=== PATIENT | female | born 1985 | race Caucasian/White ===

== ENCOUNTER 2020-04-04 10:29 | Observation (INO) | payer OTHER ==
--- NOTE | 2020-04-04 11:53 | PDOC.FPRHP ---
- History of Present Illness Chief Complaint: Lower extremity numbness/tingling History of Present Illness: Patient is 35 year old female with a history of HTN, SAMANTHA, GERD and vitamin B1/B6/B9/D deficiency who presents to the ED with complaints of worsening lower extremity numbness/tingling/pain. Symptoms started on 02/25/20 with numbness of feet bilaterally. Patient says the numbness moved up her legs into her chest over the following weeks. She then developed tingling and pain along the same distribution as the numbness. Reports difficulty moving or ambulating due to severe pain. No muscle weakness or falls. No headache, vision changes, unilateral weakness, slurred speech, incontinence and mentation changes. No recent hiking, tick bite, abnormal rash, GI infection, or vaccination. Was seen by PCP, Dr. Sheehan, in clinic on 03/14/20. Started on gabapentin 100mg daily that was titrated to 300mg daily with mild improvement of pain. Work up + for vitamin D, B1 and B6 deficiency. Patient has been taking supplements daily without change in numbness/tingling/pain. Does note "cold sores" on sides of mouth resolved after starting Vitamin B complex daily. Reports poor appetite for months with 30 lb weight loss, unintentional. ED Course: HR 110s-120s. BP 150-160s/110s. Had not taken BP medication this am and took while in ED. - Allergies/Adverse Reactions Allergies Allergy/AdvReac Type Severity Reaction Status Date / Time No Known Allergies Allergy Verified 04/04/20 22:00 - Home Medications Medication Instructions Recorded Confirmed Type Amlodipine [Norvasc] 1 tab PO DAILY 04/05/20 04/05/20 History Cholecalciferol (Vitamin D3) 1 capsule PO DAILY 04/05/20 04/05/20 History [Vitamin D3] Esomeprazole Magnesium [Nexium] 1 cap PO DAILY 04/05/20 04/05/20 History Folic Acid [Folvite] 1 tab PO DAILY 04/05/20 04/05/20 History Gabapentin [Neurontin] 1 cap PO DAILY 04/05/20 04/05/20 History Metoprolol Tartrate [Lopressor] 0.5 tab PO BID 04/05/20 04/05/20 History Norethindrone-E.Estradiol-Iron [Lo 1 - 10 mcg PO DAILY 04/05/20 04/05/20 History Loestrin Fe] Vitamin B Complex/Folic Acid 1 capsule PO DAILY 04/05/20 04/05/20 History [Super B Maxi Complex Caplet] - History PMHx: HTN, SAMANTHA, asthma, GERD, vitamin B1 deficiency, vitamin B6 deficiency, folate deficiency, vitamin D deficiency PSHx: FHx: No history of neurologic disorders. No history of MS. Social: Lives at home with and 7 year old son. Never smoker. ETOH use - previously drank 1 bottle of wine per day, cut back in 10/04 after being told LFTs were elevated, now drinks 2 normal sized tumblers of wine per night, last use yesterday pm. No hx of drug use. - Review of Systems General: reports: weight/appetite/sleep changes (30 lb weight loss). denies: fever/chills, fatigue Eyes: denies: eye pain, vision changes ENT: denies: nasal congestion, rhinorrhea Respiratory: denies: cough, congestion, shortness of breath Cardiovascular: denies: chest pain, palpitation, edema Gastrointestinal: denies: nausea, vomiting, diarrhea, abdominal pain Genitourinary: denies: incontinence Skin: denies: rashes, lesions Musculoskeletal: reports: pain (from feet to torso), swelling (mild feet, bilaterally). denies: tenderness, stiffness Neurological: reports: numbness. denies: syncope, seizure, weakness Psychological: denies: anxiety, depression - Vital signs BP 158/116, HR 115, RR 18, Temp 99.5, O2 100% on RA, 72.57kg - Physical Exam Constitutional: NAD, awake, alert and oriented HEENT: normocephalic and atraumatic, PERRLA, EOMI, conjunctiva clear, MMM Neck: FROM, trachea midline Chest: no-tender to palpation Heart: normal S1/S2, no edema -Heart: Tachycardic Lungs: CTAB, no respiratory distress, good air movement Abdomen: soft, non-tender, bowel sounds present -Abdomen: Abdominal striae present Musculoskeletal: normal tone, ROM grossly normal Neurological: no focal deficit, CN II-XII intact, normal sensation, DTRs 2+ -Neurological: Exam limited by pain. Strength 5/5 in upper and lower extremities. Negative Babinsky Skin: no rash/lesions, no jaundice Heme/Lymphatic: no unusual bruising or bleeding Psychiatric: normal mood and affect FMR H&P: Results - Labs Result Diagrams: 04/05/20 11:11 04/05/20 11:11 FMR H&P: A/P - Plan 35 year old female with hx of multiple vitamin deficiencies presented for progressive numbness/tingling/pain Ascending neuropathy, possibly 2/2 B1 deficiency vs. B6 deficiency vs. neurologic etiology Symptom progression over 6 weeks. Diagnosed with vitamin B1, B6 and D deficiency on 03/14/20, currently on B complex and B6 supplementation. Patient at risk for deficiencies due to chronic ETOH use, possibly has poor absorption as a result. Could be [place] Syndrome, although no risk factors were identified and no paralysis was present on exam. Could also be unusual presentation of MS -Admit to stroke unit, obs -Monitor on telemetry -Repeat vitamin levels. Supplement IV as indicated -CMP, CBC, HIV, RPR, UDS to further investigate -Consider neurology consult if symptoms do not improve with vitamin supplementation Vitamin B1 deficiency Vitamin B6 deficiency Vitamin D deficiency Recently diagnosed in clinic -See above for management Hx of folate deficiency Diagnosed 10/04, WNL on recheck on 03/06 -Continue home supplementation HTN BP elevated in ED, has not taken meds this am -Give home am meds now. Continue upon admission -EKG due to tachycardia Hx of folate deficiency Folate low on 10/04, improved to normal limits after initiating daily supplementation -Folate daily Asthma -Albuterol PRN for wheezing -Flonase PRN SAMANTHA -No home meds. Monitor GERD -No home meds Chronic alcohol use Drinks 2 wine tumblers per night -ASE protocol in place -ETOH level PCP: Sissy Code: FULL Diet: HH DVT: Lovenox 40mg Dispo: Admit to stroke obs, expected LOS < 48 hours FMR H&P: Upper Level - Plan Date/Time: 04/04/20 1153 I, [Shara Parmar], have evaluated this patient and agree with findings/plan as outlined by merchandising intern resident. Pertinent changes/additions are listed here. Aniyah Diaz is a 35 yo F with PMH of HTH and chronic alcohol abuse presented to the ER for worsening pain in feet. Her symptoms started in February and included numbness and tingling with associated pain. It has been difficult for her to walk due to this. Her symptoms have progressively ascended and is now up to her torso. She has been undergoing outpatient workup with her PCP, Dr. Sheehan, who discovered a B1, B6 and Vitamin D and folic acid deficiency upon chart review. She has been taking PO vitamins including B complex, folic acid. Due to clinic being closed and persistence of pain she came to the ER. She denies any bladder/bowel incontinence, pain with eye movement, paralysis, just electric, burning pain in her lower extremities. No recent illnesses or travel. No respiratory issues. She does endorse a 30lb weight loss due to lack of appetite but no GI sxs or abdominal pain. PE: Gen- NAD, CN II-XII grossly intact but limited by pain Lower extremities: Feet b/l with no pain at rest, pain with pressure on soles of feet. Negative Babinski. Reflexes present. Resistance to pressure. Outpatient labs on 03/14/20: Vit B6 15 (low), Vit B1 52 (low), Vit D 6 (low), CRP 1.4 #Peripheral neuropathy: Suspected 2/2 vitamin deficiencies vs. neurologic etiology (consider demyelinating polyneuropathy? MS? [place]?). Known B1, B6, Vit D deficiencies when checked with Dr. Sheehan a few weeks ago and has been on oral replacements. Will recheck these levels. Check RPR, HIV, CRP since CRP elevated in OP setting. Check UDS. Suspect B1 deficiency in light of chronic alcoholism. Unfortunately B1 is a 5 day sendout so will empirically replace with monitoring of symptoms. If unimprovement of symptoms will consider neurology consult for further evaluation. Patient mildly tachycardic will admit for tele monitoring and close monitoring overall in case guillan barre and to monitor for respiratory compromise. Currently no signs of respiratory distress. #Chronic alcohol abuse: Last drink two wine glasses last night. ASE protocol. #HTN: Elevated in room, missed AM meds. Restart home meds. Admit: Stroke/Obs Dvt ppx: Lovenox Addendum - Attending - Attending Attestation Date/Time: 04/04/20 [id number] I personally evaluated the patient and discussed the management with Dr. Parmar. I agree with the History, Examination, Assessment and Plan documented above with any addition or exceptions noted below. The patient is well known to me and has had this ascending paresthesia/neuropathy for a few weeks. Found to be low in B1, B6. She has also had a 30 pound weight loss that was unintentional. Will try to replace b1 via IV. Consult neurology regarding the neuro symptoms. Consider GI consult to scope pt to see if a source can be identified for poor absorption of vitamins as well as the weight loss.
[2020-04-04] MEDS ORDERED: Ondansetron ODT 4 MG TAB PO PRN (11:57)
[2020-04-04] MEDS ORDERED: Fluticasone Propionate Nasal Spray 16 gm Bottle NASAL PRN (12:26)
[2020-04-04] MEDS ORDERED: Albuterol Sulfate 1.25 MG/3 ML NEB NEB PRN (12:26)
[2020-04-04 13:34] LABS: #Eosinphils 0.1 thou/uL (0.0-0.7); #Lymphocytes 0.9 thou/uL (1.20-3.40); #Monocytes 0.6 thou/uL (0.11-0.59); #Neutrophils 3.5 thou/uL (1.40-6.50); %Basophils 0.3 % (0.0-1.0); %Lymphocytes 18.3 % (21.0-51.0); %Monocytes 11.4 % (0.0-10.0); %Neutrophils 68.9 % (42.0-75.0); Hemoglobin 12.8 g/dL (12.0-16.0); Mean Corpuscular HGB CONC 34.1 g/dL (32.0-36.0); Mean Corpuscular Hemoglobin 35.4 pg (27.0-31.0); Mean Platelet Volume 6.6 fL (7.4-10.4); Platelet Count 245 thou/uL (130-400); RBC Distribution Width 12.4 % (11.5-14.5); Red Blood Cell (RBC) Count 3.62 mill/uL (4.20-5.40); White Blood Cell (WBC) Count 5.1 thou/uL (4.8-10.8)
[2020-04-04 14:03] LABS: ALT (SGPT) 24 U/L (8-55); AST (SGOT) 30 U/L (5-34); Albumin 3.7 g/dL (3.5-5.0); Alcohol Less than 10 mg/dL (Less than 10); Alkaline Phosphatase 62 U/L (40-110); Anion Gap 17 mmol/L (10-20); BUN (Urea Nitrogen) 5 mg/dL (7.0-18.7); Bilirubin, Total 0.7 mg/dL (0.2-1.2); Calc. Creatinine Clearance 0 mL/min (70-130); Calcium 8.8 mg/dL (7.8-10.44); Carbon Dioxide 26 mmol/L (22-29); Chloride 98 mmol/L (98-107); Globulin 2.9 g/dL (2.4-3.5); Glucose 87 mg/dL (70-105); Potassium 3.7 mmol/L (3.5-5.1); Protein, Total 6.6 g/dL (6.0-8.3); Sodium 137 mmol/L (136-145)
[2020-04-04 14:16] LABS: Syphilis Antibody Nonreactive (Nonreactive); Syphilis Antibody Index 0.04 S/CO (<1.00 Non-Reactive)
[2020-04-04 14:22] LABS: Vitamin B12 207 pg/mL (211-911)
[2020-04-04 14:26] LABS: HIV (1/2) Antibody/Antigen Non-Reactive (NonReactive); HIV 1/2 INDEX 0.13 S/CO (<1.00)
[2020-04-04] MEDS ORDERED: SODIUM CHLORIDE 0.9% IVPB SCH ×2 (17:00→20:00)
[2020-04-04] MEDS ORDERED: THIAMINE HCL IVPB SCH ×2 (17:00→20:00)
[2020-04-04 18:43] LABS: Amphetamine Not Detected (NotDetected); Barbiturates Screen Not Detected (NotDetected); Benzodiazepine Screen Not Detected (NotDetected); Cocaine Metabolite Screen Not Detected (NotDetected); Medtox Control Line Valid? VALID (VALID); Medtox Reader # READER 4; Methadone Not Detected (NotDetected); Methamphetamine Not Detected (NotDetected); Opiate Screen Not Detected (NotDetected); Oxycodone Screen Not Detected (NotDetected); Phencyclidine (PCP) Not Detected (NotDetected); THC/Cannabinoid Screen Not Detected (NotDetected); Tricyclic Screen Not Detected (NotDetected)
[2020-04-04] MEDS: Gabapentin 300 MG CAP PO SCH (20:41)
[2020-04-04 21:39] VITALS: BMI 27.1
[2020-04-04] MEDS: Metoprolol Tartrate 25 MG TAB PO SCH (22:33)
[2020-04-04] MEDS: Acetaminophen 325 MG TAB PO PRN (22:33)
[2020-04-05] MEDS: Acetaminophen 325 MG TAB PO PRN ×2 (06:14→10:47)
--- NOTE | 2020-04-05 06:44 | PDOC.FM ---
- Subjective Subjective: Reports tingling and pain of lower extremities has improved since receiving the IV thiamine. States pain returns when pressure is placed on heels while standing. Denies headache, chest pain, SOB, palpitations, nausea, abdominal pain, vomiting, diarrhea, melena and hemtochezia. Says poor appetite resolved ~ 1 month ago and has been eating well since. Has not weighed herself to determine if gained weight gain. Clothes fit the same. Denies tremor or hallucinations. - Objective MAR Reviewed: Yes Vital Signs & Weight: Vital Signs (12 hours) Temp Pulse Resp BP Pulse Ox 04/05/20 04:08 99.2 F 102 H 16 143/105 H 99 04/04/20 23:47 99.9 F H 97 16 137/98 H 98 04/04/20 21:24 100.5 F H 117 H 20 159/105 H 100 Weight Weight 69.626 kg I&O: 04/03/20 04/04/20 04/05/20 06:59 06:59 06:59 Intake Total 60 Output Total 600 Balance -540 Result Diagrams: 04/05/20 11:11 04/05/20 11:11 Phys Exam - Physical Examination Constitutional: NAD HEENT: moist MMs, sclera anicteric Neck: full ROM Respiratory: no wheezing, clear to auscultation bilateral Cardiovascular: RRR, no significant murmur Gastrointestinal: soft, non-tender, positive bowel sounds Musculoskeletal: no edema Strength 5/5 Full ROM Neurological: non-focal, normal sensation, moves all 4 limbs Negative babinsky, less tender during exam Psychiatric: normal affect, A&O x 3 Skin: no rash Dx/Plan - Plan Plan: 35 year old female with hx of multiple vitamin deficiencies presented for progressive numbness/tingling/pain Ascending neuropathy, possibly 2/2 B1 deficiency vs. B6 deficiency vs. alcoholic neuropathy vs. neurologic etiology Symptom progression over 6 weeks. Diagnosed with vitamin B1, B6 and D deficiency on 03/14/20, currently on B complex and B6 supplementation. Patient at risk for deficiencies due to chronic ETOH use, possibly has poor absorption as a result. Neg HIV, RPR, UDS. Low B12 level, normal folate. Other vitamin levels pending due to send out status -Admit to stroke unit, obs -Monitor on telemetry -Continue thiamine supplementation -Continue gabapentin 600mg TID -Neurology, Dr. Sung, consulted. F/u recs Vitamin B1 deficiency Vitamin B6 deficiency Vitamin D deficiency Recently diagnosed in clinic -See above for management Hx of folate deficiency Diagnosed 10/04, WNL on recheck on 03/06 -Continue home supplementation Vitamin B12 deficiency -B12 207 upon admission -Start home supplementation Hypomagesium -Mag 1.5. Will replete this am Recent weight loss 30 lb unintentionally weight loss over past few months. Reports due to poor PO intake due to low appetite, now resolved -Consider GI consult HTN -Continue home meds -EKG: NSR, no ST segment changes Asthma -Albuterol PRN for wheezing -Flonase PRN SAMANTHA -No home meds. Monitor GERD -No home meds Chronic alcohol use Drinks 2 wine tumblers per night. Previously 1 bottle per night. -ASE protocol in place: score 5 -> 5. Continue close monitoring for possible withdrawal given elevated temperature, tachycardia, elevated BP -ETOH level negative -Encouraged cessation PCP: Sissy Code: FULL Diet: DVT: Lovenox 40mg Dispo: Home pending further medical management Addendum - Attending - Attending Attestation Date/Time: 04/05/20 1555 I personally evaluated the patient and discussed the management with the team. Plan for fever workup pending covid investigation. I agree with the History, Examination, Assessment and Plan documented above with any addition or exceptions noted below.
[2020-04-05] MEDS: Gabapentin 300 MG CAP PO SCH ×2 (08:18→16:00)
[2020-04-05] MEDS: Metoprolol Tartrate 25 MG TAB PO SCH (08:18)
[2020-04-05] MEDS ORDERED: Magnesium 2 GM/50 ML 2 GM in Premix Bag 1 BAG IVPB SCH (08:45)
[2020-04-05] MEDS ORDERED: Magnesium Sulfate 2 GM in Sodium Chloride 0.9% 100 ML IVPB SCH (08:45)
[2020-04-05] MEDS ORDERED: Cyanocobalamin (Vitamin B-12) 1,000 MCG TAB PO SCH (09:00)
[2020-04-05] MEDS ORDERED: Amlodipine 5 MG TAB PO SCH (09:00)
[2020-04-05] MEDS ORDERED: Gabapentin 300 MG CAP PO SCH (09:00)
[2020-04-05] MEDS ORDERED: Enoxaparin Sodium 40 MG/0.4 ML SYRINGE SC SCH (09:00)
[2020-04-05] MEDS ORDERED: FLU VACC QS2020-21(6MOS UP)/PF 60 MCG/0.5 ML SYRINGE IM ONE (09:00)
[2020-04-05 11:59] LABS: ALT (SGPT) 22 U/L (8-55); AST (SGOT) 28 U/L (5-34); Albumin 3.8 g/dL (3.5-5.0); Alkaline Phosphatase 60 U/L (40-110); Anion Gap 16 mmol/L (10-20); BUN (Urea Nitrogen) 5 mg/dL (7.0-18.7); Bilirubin, Total 0.8 mg/dL (0.2-1.2); Calc. Creatinine Clearance 140 mL/min (70-130); Calcium 9.4 mg/dL (7.8-10.44); Carbon Dioxide 25 mmol/L (22-29); Chloride 99 mmol/L (98-107); Glucose 91 mg/dL (70-105); Potassium 3.6 mmol/L (3.5-5.1); Protein, Total 6.8 g/dL (6.0-8.3); Sodium 136 mmol/L (136-145)
[2020-04-05 12:03] LABS: #Eosinphils 0.1 thou/uL (0.0-0.7); #Lymphocytes 1.1 thou/uL (1.20-3.40); #Monocytes 0.4 thou/uL (0.11-0.59); %Eosinophils 1.8 % (0.0-10.0); %Lymphocytes 30.1 % (21.0-51.0); Hemoglobin 12.9 g/dL (12.0-16.0); MDiff Complete? YES; Mean Corpuscular Hemoglobin 36.1 pg (27.0-31.0); Mean Platelet Volume 6.5 fL (7.4-10.4); Platelet Count 236 thou/uL (130-400); Platelet Morphology Comment Appears Adequate; Polychromasia SLIGHT = 2-3 cells (100X) (0-2/hpf); RBC Distribution Width 12.3 % (11.5-14.5); Red Blood Cell (RBC) Count 3.57 mill/uL (4.20-5.40); White Blood Cell (WBC) Count 3.7 thou/uL (4.8-10.8)
[2020-04-05 14:17] LABS: SARS-CoV-2 PCR by NAA Not Detected (NotDetected)
--- NOTE | 2020-04-05 14:53 | CON ---
NEUROLOGY CONSULTATION DATE OF CONSULTATION: 04/05/2020 REASON FOR CONSULTATION: Lower extremity numbness and paresthesias. HISTORY OF PRESENT ILLNESS: Ms. Diaz is a 35-year-old female with medical history significant for hypertension; coronary artery disease; gastroesophageal reflux disease; vitamin B1, B6, B9 and D deficiency, presented to the emergency room with worsening lower extremity numbness, tingling, and paresthesias. Per the patient, the symptoms started around March 06, 2020, with numbness of both feet, which then moved towards chest and then she developed tingling, numbness, extreme pain, and she has difficult to ambulate. The patient denies any problems with breathing. No urinary or fecal incontinence, headache, headache, nausea, vomiting, focal weakness, or focal paresthesias. She was seen by Dr. Sheehan, the PCP in the clinic, on 03/14/2020 and was started on gabapentin, which was titrated to 300 mg daily with mild improvement. She was also worked up for peripheral neuropathy and was found to have multiple vitamin deficiencies and was started on supplement. Per the patient, she also has poor appetite for the last several months with unintentional weight loss. She does have history of alcohol abuse. In the emergency room, her blood pressure was 150/110 and heart rate was 110. ALLERGIES: NO KNOWN DRUG ALLERGIES. PAST MEDICAL HISTORY: Hypertension, gastroesophageal reflux disease, asthma, multiple vitamin deficiencies, folate deficiencies. PAST SURGICAL HISTORY: section. FAMILY HISTORY: No history of MS or neurological disorder. SOCIAL HISTORY: The patient lives at home with her and a 7-year-old son. She denies smoking. She does have history of alcohol abuse. The last drink was 2 days ago. REVIEW OF SYSTEMS: All systems reviewed and were negative except the pertinent positives and negatives mentioned in the HPI. PHYSICAL EXAMINATION: VITAL SIGNS: Blood pressure 158/100, pulse 98, respiratory rate 18. ALLERGIES: Allergies Allergy/AdvReac Type Severity Reaction Status Date / Time No Known Allergies Allergy Verified 04/04/20 22:00 MEDICATIONS: Medication Instructions Recorded Confirmed Type Amlodipine [Norvasc] 1 tab PO DAILY 04/05/20 04/05/20 History Cholecalciferol (Vitamin D3) 1 capsule PO DAILY 04/05/20 04/05/20 History [Vitamin D3] Esomeprazole Magnesium [Nexium] 1 cap PO DAILY 04/05/20 04/05/20 History Folic Acid [Folvite] 1 tab PO DAILY 04/05/20 04/05/20 History Gabapentin [Neurontin] 1 cap PO DAILY 04/05/20 04/05/20 History Metoprolol Tartrate [Lopressor] 0.5 tab PO BID 04/05/20 04/05/20 History Norethindrone-E.Estradiol-Iron [Lo 1 - 10 mcg PO DAILY 04/05/20 04/05/20 History Loestrin Fe] Vitamin B Complex/Folic Acid 1 capsule PO DAILY 04/05/20 04/05/20 History [Super B Maxi Complex Caplet] Vital Signs & Weight: Vital Signs (12 hours) Temp Pulse Resp BP Pulse Ox 04/05/20 04:08 99.2 F 102 H 16 143/105 H 99 04/04/20 23:47 99.9 F H 97 16 137/98 H 98 04/04/20 21:24 100.5 F H 117 H 20 159/105 H 100 Weight Weight 69.626 kg I&O: 04/03/20 04/04/20 04/05/20 06:59 06:59 06:59 Intake Total 60 Output Total 600 Balance -540 PHYSICAL EXAMINATION: General: No acute distress CARDIOVASCULAR SYSTEM: Regular rate and rhythm. CHEST: Clear. ABDOMEN: Soft. NECK: Supple. NEUROLOGIC: Mental status; the patient is alert and oriented to person, place, and time. Recent and remote memory intact. Fund of knowledge is appropriate. Cranial nerves 2 through 12 intact. Motor; muscle tone and bulk are normal. Strength 5/5 bilaterally. Sensory intact but diminished. Cerebellar, finger-nose testing intact. Gait, deferred due to the patient's safety reasons. DATA REVIEWED: I reviewed the labs. ASSESSMENT AND PLAN: Ms. Diaz is a 35-year-old female with multiple vitamin deficiencies, presented with progressive numbness, tingling, and pain. The patient has severe vitamin deficiencies due to chronic alcohol abuse. Exam did not support Guillain-[place] syndrome or multiple sclerosis like syndrome. She needs to follow up as outpatient for vitamins. Continue thiamine and other vitamin supplementation as inpatient. Neuro checks every 4 hours. Consider outpatient Neurology appointment for extensive evaluation of peripheral neuropathy including treatment. She does need supplementation of vitamin deficiencies. Gabapentin was titrated up to 600 mg daily by the primary team, which did improve the symptoms. We will further titrate it to 900 mg daily, which is 300 mg t.i.d. to see if it further improves the symptoms of peripheral neuropathy. Continue home medications. Continue medical management per primary team. [facility] protocol. The patient counseled about alcohol cessation and is in fact on peripheral neuropathy. The plan was discussed in detail with the patient and also with the primary team. Job ID: [id number] MTDD
[2020-04-05 16:58] VITALS: BP 146/98; TEMP 99.4
--- NOTE | 2020-04-06 13:32 | DIS ---
DATE OF ADMISSION: 04/04/2020 DATE OF DISCHARGE: 04/05/2020 ADMITTING ATTENDING: Shanda Sheehan MD DISCHARGE ATTENDING: Jesus Marx MD CONSULTS: Joana Sung MD (Neurology) PROCEDURES: None. PRIMARY DIAGNOSES: Ascending neuropathy secondary to vitamin B1 deficiency. Hypomagnesium, resolved. SECONDARY DIAGNOSES: 1. Vitamin B1 deficiency. 2. Vitamin B6 deficiency. 3. Vitamin B12 deficiency. 4. Vitamin D deficiency. 5. History of folate deficiency. 6. Hypertension. 7. Asthma. 8. Generalized anxiety disorder. 9. Gastroesophageal reflux disease. 10. Chronic alcohol use. 11. Recent weight loss. DISCHARGE MEDICATIONS: 1. Folic acid one tablet p.o. daily. 2. Loestrin Fe one tablet daily. 3. Metoprolol tartrate 12.5 mg p.o. b.i.d. 4. Nexium 20 mg p.o. daily. 5. Norvasc 5 mg p.o. daily. 6. Vitamin B complex with folic acid one capsule p.o. daily. 7. Vitamin D3 5000 units p.o. daily. 8. Flonase nasal spray p.r.n. 9. Gabapentin 600 mg t.i.d. for 30 p.r.n. 10. Vitamin B12, 1000 mcg p.o. daily. DISCONTINUED MEDICATIONS: None. HISTORY OF PRESENT ILLNESS: The patient is a 35-year-old female with a history of hypertension, generalized anxiety disorder, GERD, and multiple vitamin deficiencies, who presented to the ED with worsening lower extremity numbness, tingling, and pain that began on 02/25/2020 at her feet, have progressively ascended towards the trunk. The patient had been recently worked up in the clinic and found to have a vitamin D, B1 and B6 deficiency seen. The patient was admitted to stroke observation. She was started on thiamine supplementation at 100 IV, then 500 IV with improvement of her symptoms. She was continued on her vitamin B complex, vitamin D, and folate supplementation. She was started on B12 supplementation. HIV, RPR, and UDS were negative. Vitamin panel was obtained that is send out and therefore results are not available during hospitalization. Neurology, Dr. Sung was consulted and recommended continuing thiamine supplementation with possible outpatient Neurology evaluation. She recommended increase of gabapentin from 300 mg b.i.d. to 300 mg t.i.d. which was then titrated to 600 mg t.i.d. with continued improvement in symptoms. Prior to discharge, the patient was able to ambulate without assistance and reported significant improvement in her numbness, tingling, and pain. She was deemed stable for discharge home on 04/05/2020. She will follow up within [address] Sheehan for further workup. During hospitalization, the patient was extensively counseled regarding her chronic alcohol use. The patient's CHRISTINA score was 5 throughout hospitalization without withdrawal medication required. The patient agreed that she would cut back on her alcohol, but was still considering complete cessation. ETOH level was negative upon admission. DISPOSITION: Stable. DISCHARGE INSTRUCTIONS: 1. Location: Home. 2. Diet: Heart healthy. 3. Activity: As tolerated. 4. Follow up with PCP, Dr. Sheehan within 1 week. Consider outpatient Neurology consult at that time. Job ID: [id number] MTDD
[2020-04-09 11:15] LABS: Vitamin B6-Pyridoxal Phosphate 17.3 ug/L (2.0-32.8)
== END 2020-04-05 17:35 | disposition home or self-care (01) ==
LOC: ERS 10:29 → ERHOLD 11:51 → 3SE 21:22
PROVIDERS: ADMIT Family Medicine; ATTEND Family Medicine
DX: F10.10 Alcohol abuse, uncomplicated (principal); E51.9 Thiamine deficiency, unspecified; G62.9 Polyneuropathy, unspecified; E53.1 Pyridoxine deficiency; E53.8 Deficiency of other specified B group vitamins; E55.9 Vitamin D deficiency, unspecified; I10 Essential (primary) hypertension; J45.909 Unspecified asthma, uncomplicated; F41.1 Generalized anxiety disorder; K21.9 Gastro-esophageal reflux disease without esophagitis; F32.9 Major depressive disorder, single episode, unspecified; R63.4 Abnormal weight loss; Z68.27 Body mass index [BMI] 27.0-27.9, adult; Z79.899 Other long term (current) drug therapy; Z20.822 Contact with and (suspected) exposure to COVID-19
CPT/HCPCS: 36415; 80053; 80306; 80307; 82180; 82306; 82607; 82746; 83735; 83880; 84207; 84425; 84443; 84446; 84590; 85025; 86780; 87389; 87635; 93005; 96365; 96367; 96372; 96375; 96376; G0378; J1650; J3411; J3475; U0003; U0005

== ENCOUNTER 2020-09-22 08:54 | Outpatient (CLI) | payer OTHER | END 2020-09-22 08:55 | disposition home or self-care (01) | LOC: BICMAMMO 08:54 | PROVIDERS: ATTEND Advanced Practice Midwife | DX: N63.10 Unspecified lump in the right breast, unspecified quadrant (principal) | CPT/HCPCS: 77066; G0279 ==

== ENCOUNTER 2023-06-06 08:08 | Day surgery (SDC) | payer BC ==
[2023-06-03 09:23] VITALS: BMI 30.1
[2023-06-06] MEDS ORDERED: fentaNYL PF 100 MCG/2 ML SYRINGE ONE (09:52)
[2023-06-06] MEDS ORDERED: Midazolam HCl 2 mg/2 ml Vial ONE (09:53)
[2023-06-06] MEDS ORDERED: Ondansetron PF 4 MG/2 ML Vial ONE (09:53)
[2023-06-06] MEDS ORDERED: Rocuronium Bromide 10 MG/ML (10ML VIAL) ONE (09:53)
[2023-06-06] MEDS ORDERED: PROPOFOL 20 ML ONE (09:53)
[2023-06-06] MEDS ORDERED: Lidocaine 1% PF 5 ML VIAL ONE (09:53)
[2023-06-06] MEDS ORDERED: Dexamethasone 4 mg/ml Vial ONE (09:53)
[2023-06-06] MEDS ORDERED: SUGAMMADEX SODIUM 200 MG/2 ML VIAL ONE (09:53)
[2023-06-06] MEDS ORDERED: Glycopyrrolate 0.2 MG/ML 5 ML SYRINGE ONE (09:59)
[2023-06-06] MEDS ORDERED: EPINEPHrine 1 MG/ML VIAL ONE (10:09)
[2023-06-06] MEDS ORDERED: Indocyanine Green 25 MG/10 ML VIAL ONE (10:09)
[2023-06-06] MEDS ORDERED: Bupivacaine 0.25% HCL 30 ML VIAL ONE (10:09)
[2023-06-06] MEDS ORDERED: CEFAZOLIN 2 GM VIAL ONE (10:38)
[2023-06-06] MEDS ORDERED: Sodium Chloride 0.9% 100 ML ONE (10:38)
[2023-06-06] MEDS ORDERED: HYDROmorphone 0.5 MG/0.5 ML SYRINGE ONE ×3 (11:03→12:53)
[2023-06-06] MEDS ORDERED: fentaNYL 50 mcg/mL 1 mL Vial ONE (12:42)
[2023-06-06] MEDS ORDERED: HYDROcodone/Acetaminophen 5/325 mg Tablet ONE (14:18)
[2023-06-06] MEDS ORDERED: Labetalol HCl 100 MG/20 ML VIAL ONE (14:49)
== END 2023-06-06 15:48 | disposition home or self-care (01) ==
LOC: SDC 08:08
PROVIDERS: ATTEND Surgery
PROC: 0FT44ZZ Resection of Gallbladder, Percutaneous Endoscopic Approach (ICD-10-PCS; principal; 2023-06-06)
DX: K80.10 Calculus of gallbladder with chronic cholecystitis without obstruction (principal); J45.909 Unspecified asthma, uncomplicated; K21.9 Gastro-esophageal reflux disease without esophagitis; M19.90 Unspecified osteoarthritis, unspecified site; G43.909 Migraine, unspecified, not intractable, without status migrainosus; G47.00 Insomnia, unspecified; F41.9 Anxiety disorder, unspecified; F32.A Depression, unspecified; D64.9 Anemia, unspecified; Z79.899 Other long term (current) drug therapy; Z98.51 Tubal ligation status; F17.290 Nicotine dependence, other tobacco product, uncomplicated
CPT/HCPCS: 88304; C1889; J0171; J0665; J1100; J1170; J2250; J2405; J2704; J3010; J3490